=== PATIENT | male | born 1960 | race Caucasian/White ===

== ENCOUNTER 2020-03-31 04:59 | Observation (INO) | payer BC, OTHER ==
--- NOTE | 2020-03-31 05:27 | EDPHYS ---
Physician Documentation [facility] Name: Stephen Pagan Jr Age: 59 yrs Sex: Male : 1960 Arrival Date: 03/31/2020 Time: 05:00 Bed 7 Private MD: ED Physician Josue Newsome HPI: 03/31 05:15 This 59 yrs old Male presents to ER via EMS with complaints of Chest Pain. john 05:15 The patient or guardian reports chest pain that is located primarily in the substernal john area. Onset: just prior to arrival. The pain radiates to back, thoracic area. Associated signs and symptoms: Pertinent positives: None. Pertinent negatives: None. The chest pain is described as a pressure. Modifying factors: The symptoms are alleviated by nothing. the symptoms are aggravated by nothing. Severity of pain: At its worst the pain was moderate in the emergency department the pain is unchanged. EMS care prior to arrival includes: aspirin, supplemental oxygen. Historical: - Allergies: 05:04 Morphine; rr5 05:04 nexium; rr5 - Immunization history:: Adult Immunizations up to date. - Social history:: Smoking status: Patient denies any tobacco usage or history of. - Family history:: not pertinent. - Hospitalizations: : No recent hospitalization is reported. ROS: 05:15 Constitutional: Negative for fever, chills, and weight loss, Eyes: Negative for injury, john pain, redness, and discharge, ENT: Negative for injury, pain, and discharge, Neck: Negative for injury, pain, and swelling, Respiratory: Negative for shortness of breath, cough, wheezing, and pleuritic chest pain, Abdomen/GI: Negative for abdominal pain, nausea, vomiting, diarrhea, and constipation, : Negative for injury, bleeding, discharge, and swelling, MS/Extremity: Negative for injury and deformity, Skin: Negative for injury, rash, and discoloration, Neuro: Negative for headache, weakness, numbness, tingling, and seizure, Psych: Negative for depression, anxiety, suicide ideation, homicidal ideation, and hallucinations, Allergy/Immunology: Negative for hives, rash, and allergies, Endocrine: Negative for neck swelling, polydipsia, polyuria, polyphagia, and marked weight changes, Hematologic/Lymphatic: Negative for swollen nodes, abnormal bleeding, and unusual bruising. 05:15 Cardiovascular: Positive for chest pain, of the chest. 05:15 Back: Positive for pain at rest, radiated pain. Exam: 05:15 Constitutional: This is a well developed, well nourished patient who is awake, alert, john and in no acute distress. Head/Face: Normocephalic, atraumatic. Eyes: Pupils equal round and reactive to light, extra-ocular motions intact. Lids and lashes normal. Conjunctiva and sclera are non-icteric and not injected. Cornea within normal limits. Periorbital areas with no swelling, redness, or edema. ENT: Nares patent. No nasal discharge, no septal abnormalities noted. Tympanic membranes are normal and external auditory canals are clear. Oropharynx with no redness, swelling, or masses, exudates, or evidence of obstruction, uvula midline. Mucous membranes moist. Neck: Trachea midline, no thyromegaly or masses palpated, and no cervical lymphadenopathy. Supple, full range of motion without nuchal rigidity, or vertebral point tenderness. No Meningismus. Chest/axilla: Normal chest wall appearance and motion. Nontender with no deformity. No lesions are appreciated. Cardiovascular: Regular rate and rhythm with a normal S1 and S2. No gallops, murmurs, or rubs. Normal PMI, no JVD. No pulse deficits. Respiratory: Lungs have equal breath sounds bilaterally, clear to auscultation and percussion. No rales, rhonchi or wheezes noted. No increased work of breathing, no retractions or nasal flaring. Abdomen/GI: Soft, non-tender, with normal bowel sounds. No distension or tympany. No guarding or rebound. No evidence of tenderness throughout. Back: No spinal tenderness. No costovertebral tenderness. Full range of motion. Male : Normal genitalia with no discharge or lesions. Skin: Warm, dry with normal turgor. Normal color with no rashes, no lesions, and no evidence of cellulitis. MS/ Extremity: Pulses equal, no cyanosis. Neurovascular intact. Full, normal range of motion. Neuro: Awake and alert, GCS 15, oriented to person, place, time, and situation. Cranial nerves II-XII grossly intact. Motor strength 5/5 in all extremities. Sensory grossly intact. Cerebellar exam normal. Normal gait. Psych: Awake, alert, with orientation to person, place and time. Behavior, mood, and affect are within normal limits. 05:22 ECG was reviewed by the Attending Physician. [facility] Vital Signs: 05:00 BP 157 / 85; Pulse 80; Resp 20; Temp 98.3; Pulse Ox 100% on R/A; Weight 77.11 kg; rr5 Height 6 ft. (182.88 cm); Pain 9/10; 05:30 BP 148 / 108 LA Supine (auto/); Pulse 72 MON; Resp 18 S; Pulse Ox 100% on R/A; sf 05:45 BP 154 / 74 RA Supine (auto/); Pulse 72 MON; Resp 18 S; Pulse Ox 99% on R/A; sf 06:00 BP 114 / 87; Pulse 68; Resp 16; Pulse Ox 97% ; ea 06:15 BP 137 / 79; Pulse 66; Pulse Ox 98% ; ea 06:30 BP 150 / 82 Supine (auto/); Pulse 66 MON; Pulse Ox 98% on R/A; ea 05:00 Body Mass Index 23.06 (77.11 kg, 182.88 cm) rr5 MDM: 05:08 Patient medically screened. [facility] 05:18 Differential diagnosis: abnormal EKG, acute myocardial infarction, acute pericarditis, john cholecystitis, Cholelithiasis costochondritis, esophagitis, gastritis, gastroesophageal reflux disease (GERD), herpes zoster, hiatal hernia, pancreatitis, peptic ulcer disease, pericarditis, pulmonary embolus, stable angina, thoracic aortic disection, unstable angina. HEART Score: History: Moderately Suspicious (1), ECG: Non specific repolarization disturbance / LBTB / PM (1), Age: > 45 and < 65 years (1), Risk Factors: > or = 3 Risk factors for atherosclerotic disease (2), [Hypercholesterolemia] [Hypertension] [+ Family HX]. The patient was not given aspirin in the Emergency Department. Administered by EMS. The patient's deep vein thrombosis risk score was calculated as follows: Total Score: 0. This patient was found to be at low risk for a deep vein thrombosis by using the Well's assessment criteria. The patient's pulmonary embolism risk score was calculated as follows: Total Score: 0-2 points. This patient was found to be at low risk for a pulmonary embolism by using the Well's assessment criteria. MARINE Risk Score: TOTAL SCORE = 0. Data reviewed: vital signs, nurses notes, lab test result(s), EKG, radiologic studies, CT scan, plain films. Data interpreted: engine monitor: rate is 80 beats/min, rhythm is regular, Pulse oximetry: on room air is 100 %. Test interpretation: by ED physician or midlevel provider: ECG, plain radiologic studies. Counseling: I had a detailed discussion with the patient and/or guardian regarding: the historical points, exam findings, and any diagnostic results supporting the discharge/admit diagnosis, lab results, radiology results, the need for further work-up and treatment in the hospital. 03/31 05:05 Order name: Basic Metabolic Panel rr5 03/31 05:05 Order name: CBC with Diff rr5 03/31 05:05 Order name: LFT's rr5 03/31 05:05 Order name: Magnesium rr5 03/31 05:05 Order name: NT PRO-BNP rr5 03/31 05:05 Order name: PT-INR; Complete Time: 06:18 rr5 03/31 05:05 Order name: Troponin (emerg Dept Use Only); Complete Time: 06:02 rr5 03/31 05:05 Order name: Basic Metabolic Panel; Complete Time: 06:02 EDMS 03/31 05:05 Order name: CBC with Automated Diff; Complete Time: 05:54 EDMS 03/31 05:06 Order name: Liver (Hepatic) Function; Complete Time: 06:02 EDMS 03/31 05:06 Order name: Magnesium; Complete Time: 06:02 EDMS 03/31 05:06 Order name: NT PRO-BNP; Complete Time: 06:02 EDMS 03/31 05:13 Order name: Lipase [facility] 03/31 05:05 Order name: XRAY Chest (1 view) rr5 03/31 05:13 Order name: CT Aorta for Dissection [facility] 03/31 05:29 Order name: Urine Dipstick--Ancillary (enter results) ds4 03/31 05:30 Order name: Urine Dipstick-Ancillary EDPR 03/31 05:42 Order name: Lipase; Complete Time: 06:02 EDMS 03/31 06:19 Order name: US Abdomen Limited [facility] 03/31 06:47 Order name: SARS-COV-2 RT PCR; Complete Time: 07:07 EDMS 03/31 08:48 Order name: RAD EDPR 03/31 08:58 Order name: US EDPR 03/31 10:09 Order name: Troponin I EDPR 03/31 10:13 Order name: PTT, Activated Partial Thromb EDPR 03/31 11:28 Order name: Lipid Profile [facility] 03/31 05:05 Order name: EKG; Complete Time: 05:06 rr5 03/31 05:05 Order name: Cardiac monitoring; Complete Time: 05:06 rr5 03/31 05:05 Order name: EKG - Nurse/Tech; Complete Time: 05:06 rr5 03/31 05:05 Order name: IV Saline Lock; Complete Time: 05:06 rr5 03/31 05:05 Order name: Labs collected and sent; Complete Time: 05:06 rr5 03/31 05:05 Order name: O2 Per Protocol; Complete Time: 05:06 rr5 03/31 05:05 Order name: O2 Sat Monitoring; Complete Time: 05:19 rr5 03/31 05:13 Order name: Urine Dipstick-Ancillary (obtain specimen); Complete Time: 05:28 [facility] 03/31 06:54 Order name: CONS Physician Consult EDPR EC:22 Rate is 72 beats/min. QRS [place] is Normal. [place] interval is normal. QRS interval is john normal. QT interval is normal. No Q waves. T waves are Normal. ST Segment is depressed in leads II, III, aVF, V5, V6. Interpreted by me. Reviewed by me. Administered Medications: 05:15 Not Given (dose given by EMS prior to arrival ): Aspirin Chewable Tablet 324 mg PO rr5 once; 81 mg tablets x 4 05:34 Drug: fentaNYL (PF) 50 mcg {Note: rass 0.} Route: IVP; Site: right antecubital; ea 06:04 Follow up: Response: No adverse reaction; Marked relief of symptoms; Pain is decreased sf 05:34 Drug: Zofran (Ondansetron) 4 mg Route: IVP; Site: right antecubital; ea 06:04 Follow up: Response: No adverse reaction sf 05:35 Drug: Pepcid 20 mg Route: IVP; Site: right antecubital; ea 07:00 Follow up: Response: No adverse reaction hb 06:18 Not Given (Duplicate Order): PlaVIX 300 mg PO once john 07:40 Drug: Lopressor 2.5 mg Route: IVP; Site: right wrist; hb 08:15 Follow up: Response: No adverse reaction hb 07:40 Drug: Zosyn 3.375 grams Route: IVPB; Infused Over: 60 mins; Site: right wrist; hb 08:40 Follow up: IV Status: Completed infusion; IV Intake: 50ml hb 11:06 Follow up: Response: No adverse reaction hb 08:00 Drug: Heparin (SC-Bolus No thrombolytic) - HEParin 60 units/kg {Co-Signature: ss hb (Brenda Boo RN).} Route: IVP; Site: right wrist; 09:00 Follow up: Response: No adverse reaction hb 08:00 Drug: Heparin (SC Drip) 12 units/kg/hr - (HEParin 17106 units, D5W 500 ml) hb {Co-Signature: ss (Brenda Boo RN).} Route: IV; Rate: calculated rate; Site: right wrist; 08:45 Follow up: IV Status: Infusion continued upon admission; IV Intake: 25ml hb 08:04 Drug: fentaNYL (PF) 50 mcg Route: IVP; Site: right wrist; hb 08:40 Follow up: Response: No adverse reaction hb 08:04 Drug: Zofran (Ondansetron) 4 mg Route: IVP; Site: right wrist; hb 08:40 Follow up: Response: No adverse reaction hb 11:07 Not Given (does not meet parameters): Lopressor 2.5 mg IVP once; Hold for SBP <100 or hb HR <60. Disposition: 03/31/20 05:26 Hospitalization ordered by Garret Roberto for Inpatient Admission. Preliminary diagnosis are Chest pain, unspecified, Angina pectoris, Essential (primary) hypertension, Other abdominal pain - dyspepsia, Cholelithiasis, Cholecystitis. - Bed requested for [facility] ER HOLD. - Status is Inpatient Admission. hb - Condition is Fair. - Problem is new. - Symptoms have improved. Signatures: Dispatcher [employer] EDMS Radha Vazquez Corey, MD MD cha Attema, Lee, ASSISTANT TENNIS PROFESSIONAL-C ASSISTANT TENNIS PROFESSIONAL-Cla1 Janey Brock RN RN hb Antunez, Elena, RN RN ea Roque, Raymond, RN RN rr5 Adama Floyd RN, RN ss Corrections: (The following items were deleted from the chart) 05:31 05:26 Hospitalization Ordered by Usman Hawley DO for Observation. Preliminary la1 diagnosis is Chest pain, unspecified; Angina pectoris; Essential (primary) hypertension. Bed requested for Telemetry/MedSurg (observation). Status is Observation. Condition is Fair. Problem is new. Symptoms have improved. john 05:41 05:13 Lipase ordered. EDMS EDMS 05:54 05:26 CORONAVIRUS ordered. EDPR EDMS 06:28 05:31 03/31/2020 05:26 Hospitalization Ordered by Garret Roberto MD for Observation. john Preliminary diagnosis is Chest pain, unspecified; Angina pectoris; Essential (primary) hypertension. Bed requested for Telemetry/MedSurg (observation). Status is Observation. Condition is Fair. Problem is new. Symptoms have improved. la1 07:15 06:28 03/31/2020 05:26 Hospitalization Ordered by Garret Roberto MD for Observation. john Preliminary diagnosis is Chest pain, unspecified; Angina pectoris; Essential (primary) hypertension; Other abdominal pain - dyspepsia. Bed requested for Telemetry/MedSurg (observation). Status is Observation. Condition is Fair. Problem is new. Symptoms have improved. john 07:16 07:15 03/31/2020 05:26 Hospitalization Ordered by Garret Roberto MD for Inpatient john Admission. Preliminary diagnosis is Chest pain, unspecified; Angina pectoris; Essential (primary) hypertension; Other abdominal pain - dyspepsia. Bed requested for Telemetry/MedSurg (Inpatient). Status is Inpatient Admission. Condition is Fair. Problem is new. Symptoms have improved. john 07:47 07:16 03/31/2020 05:26 Hospitalization Ordered by Garret Roberto MD for Inpatient bd Admission. Preliminary diagnosis is Chest pain, unspecified; Angina pectoris; Essential (primary) hypertension; Other abdominal pain - dyspepsia; Cholelithiasis; Cholecystitis. Bed requested for Telemetry/MedSurg (Inpatient). Status is Inpatient Admission. Condition is Fair. Problem is new. Symptoms have improved. john 12:20 07:47 03/31/2020 05:26 Hospitalization Ordered by Garret Roberto MD for Inpatient hb Admission. Preliminary diagnosis is Chest pain, unspecified; Angina pectoris; Essential (primary) hypertension; Other abdominal pain - dyspepsia; Cholelithiasis; Cholecystitis. Bed requested for [facility] ER HOLD. Status is Inpatient Admission. Condition is Fair. Problem is new. Symptoms have improved. bd
--- NOTE | 2020-03-31 05:27 | ER ---
Nurse's Notes [facility] Name: Stephen Pagan Jr Age: 59 yrs Sex: Male : 1960 Arrival Date: 03/31/2020 Time: 05:00 Bed 7 Private MD: Diagnosis: Chest pain, unspecified;Angina pectoris;Essential (primary) hypertension;Other abdominal pain-dyspepsia;Cholelithiasis;Cholecystitis Presentation: 03/31 05:00 Chief complaint: EMS states: Reports chest pain that started yesterday night and rr5 worsened this morning, pt reported to EMS pain that started 10/10,reports pain radiates to back and left shoulder. Coronavirus screen: At this time, the client does not indicate any symptoms associated with coronavirus-19. Ebola Screen: No symptoms or risks identified at this time. Initial Sepsis Screen: Does the patient meet any 2 criteria? No. Patient's initial sepsis screen is negative. Does the patient have a suspected source of infection? No. Patient's initial sepsis screen is negative. Risk Assessment: Do you want to hurt yourself or someone else? Patient reports no desire to harm self or others. Onset of symptoms was March 31, 2020. 05:00 Method Of Arrival: EMS: [facility] rr5 05:00 Acuity: KIA 3 rr5 07:11 Acuity: KIA 2 rr5 Triage Assessment: 05:16 General: Appears uncomfortable, Behavior is appropriate for age. Pain: Complains of ea pain in chest Pain radiates to back and left arm Pain currently is 9 out of 10 on a pain scale. at worst was 10 out of 10 on a pain scale. Quality of pain is described as burning. Neuro: Level of Consciousness is awake, alert, obeys commands, Oriented to person, place, time, situation. Cardiovascular: Patient's skin is warm and dry. Respiratory: Airway is patent Respiratory effort is even, unlabored, Respiratory pattern is regular, symmetrical. GI: Abdomen is non-distended. Derm: Skin is dry, Skin is pale, Skin temperature is warm. Musculoskeletal: Circulation, motion, and sensation intact. Historical: - Allergies: 05:04 Morphine; rr5 05:04 nexium; rr5 - Immunization history:: Adult Immunizations up to date. - Social history:: Smoking status: Patient denies any tobacco usage or history of. - Family history:: not pertinent. - Hospitalizations: : No recent hospitalization is reported. Screenin:00 Abuse screen: Denies threats or abuse. Nutritional screening: No deficits noted. rr5 Tuberculosis screening: No symptoms or risk factors identified. Fall Risk None identified. Assessment: 05:15 General: Appears in no apparent distress. uncomfortable, well groomed, Behavior is sf calm, cooperative, appropriate for age. Pain: Complains of pain in xyphoid area Pain radiates to thoracic area Pain currently is 10 out of 10 on a pain scale. Quality of pain is described as burning, Pain began 2 hours ago. Alleviated by nothing. Neuro: No deficits noted. Cardiovascular: Patient's skin is warm and dry. Rhythm is sinus rhythm. Respiratory: No deficits noted. GI: No signs and/or symptoms were reported involving the gastrointestinal system. 06:06 Reassessment: Patient and/or family updated on plan of care and expected duration. Pain sf level reassessed. Patient is alert, oriented x 3, equal unlabored respirations, skin warm/dry/pink. Patient reports chest pain is 2/10, back pain is still 6/10. Patient appears more comfortable. Given urinal per request. Patient states feeling better. Patient states symptoms have improved. 07:05 Reassessment: rosa from ultrasound staff called relayed thick bladder wall fydge large rr5 gallstone in the neck of the gallbladder, pericholecystic fluid. hospitalist aware. 07:43 Reassessment: Patient appears in no apparent distress at this time. Patient and/or hb family updated on plan of care and expected duration. Pain level reassessed. Patient is alert, oriented x 3, equal unlabored respirations, skin warm/dry/pink. 08:14 Reassessment: Safia [phone]. hb Vital Signs: 05:00 BP 157 / 85; Pulse 80; Resp 20; Temp 98.3; Pulse Ox 100% on R/A; Weight 77.11 kg; rr5 Height 6 ft. (182.88 cm); Pain 9/10; 05:30 BP 148 / 108 LA Supine (auto/); Pulse 72 MON; Resp 18 S; Pulse Ox 100% on R/A; sf 05:45 BP 154 / 74 RA Supine (auto/); Pulse 72 MON; Resp 18 S; Pulse Ox 99% on R/A; sf 06:00 BP 114 / 87; Pulse 68; Resp 16; Pulse Ox 97% ; ea 06:15 BP 137 / 79; Pulse 66; Pulse Ox 98% ; ea 06:30 BP 150 / 82 Supine (auto/); Pulse 66 MON; Pulse Ox 98% on R/A; ea 05:00 Body Mass Index 23.06 (77.11 kg, 182.88 cm) rr5 ED Course: 05:00 Patient arrived in ED. cl3 05:03 Triage completed. rr5 05:03 Arm band placed on right wrist. Patient placed in an exam room, on a stretcher, on rr5 court recording monitor, on pulse oximetry. EKG completed in triage. Results shown to MD. 05:04 Patient has correct armband on for positive identification. Placed in gown. Bed in low rr5 position. Call light in reach. Side rails up X2. laboratory monitor on. Pulse ox on. NIBP on. 05:08 Josue Newsome MD is Attending Physician. john 05:11 Initial lab(s) drawn, by me, sent to lab. EKG done, by ED staff. Inserted saline lock: sf 20 gauge in right forearm, using aseptic technique. 05:26 Usman Hawley DO is Hospitalizing Provider. john 05:31 Garret Roberto MD is Hospitalizing Provider. la1 05:37 CT Aorta for Dissection In Process Unspecified. EDMS 05:48 Adama Floyd, XAVI is Primary Nurse. sf 08:21 No provider procedures requiring assistance completed. Patient admitted, IV remains in hb place. Administered Medications: 05:15 Not Given (dose given by EMS prior to arrival ): Aspirin Chewable Tablet 324 mg PO rr5 once; 81 mg tablets x 4 05:34 Drug: fentaNYL (PF) 50 mcg {Note: rass 0.} Route: IVP; Site: right antecubital; ea 06:04 Follow up: Response: No adverse reaction; Marked relief of symptoms; Pain is decreased sf 05:34 Drug: Zofran (Ondansetron) 4 mg Route: IVP; Site: right antecubital; ea 06:04 Follow up: Response: No adverse reaction sf 05:35 Drug: Pepcid 20 mg Route: IVP; Site: right antecubital; ea 07:00 Follow up: Response: No adverse reaction hb 06:18 Not Given (Duplicate Order): PlaVIX 300 mg PO once john 07:40 Drug: Lopressor 2.5 mg Route: IVP; Site: right wrist; hb 08:15 Follow up: Response: No adverse reaction hb 07:40 Drug: Zosyn 3.375 grams Route: IVPB; Infused Over: 60 mins; Site: right wrist; hb 08:40 Follow up: IV Status: Completed infusion; IV Intake: 50ml hb 11:06 Follow up: Response: No adverse reaction hb 08:00 Drug: Heparin ([place]-Bolus No thrombolytic) - HEParin 60 units/kg {Co-Signature: ss hb (Brenda Boo RN).} Route: IVP; Site: right wrist; 09:00 Follow up: Response: No adverse reaction hb 08:00 Drug: Heparin ([place] Drip) 12 units/kg/hr - (HEParin 54691 units, D5W 500 ml) hb {Co-Signature: ss (Brenda Boo RN).} Route: IV; Rate: calculated rate; Site: right wrist; 08:45 Follow up: IV Status: Infusion continued upon admission; IV Intake: 25ml hb 08:04 Drug: fentaNYL (PF) 50 mcg Route: IVP; Site: right wrist; hb 08:40 Follow up: Response: No adverse reaction hb 08:04 Drug: Zofran (Ondansetron) 4 mg Route: IVP; Site: right wrist; hb 08:40 Follow up: Response: No adverse reaction hb 11:07 Not Given (does not meet parameters): Lopressor 2.5 mg IVP once; Hold for SBP <100 or hb HR <60. Intake: 08:40 IV: 50ml; Total: 50ml. hb 08:45 IV: 25ml; Total: 75ml. hb Outcome: 05:26 Decision to Hospitalize by Provider. john 08:21 Admitted to ER Hold. [facility]. hb 08:21 Condition: stable 08:21 Instructed on the need for admit, Demonstrated understanding of instructions. 12:20 Patient left the ED. hb Signatures: Dispatcher [facility] Josue Newsome MD MD cha Attema, Lee, TOOLING SUPERVISOR-C TOOLING SUPERVISOR-Cla1 Janey Brock RN Kelsea Yang RN RN Garret Galvan RN RN rr5 Noemy Berrios cl3 Adama Floyd RN RN stiven Boo RN ss Corrections: (The following items were deleted from the chart) 06:06 06:05 Response: No adverse reaction; Marked relief of symptoms; Pain is decreased sf sf
[2020-03-31] MEDS ORDERED: FENTANYL CITR 100 MCG/2 ML ONE ×3 (05:36→12:43)
[2020-03-31] MEDS ORDERED: ONDANSETRON 4 MG/2 ML VIAL ONE ×3 (05:37→13:33)
[2020-03-31] MEDS ORDERED: FAMOTIDINE 20 MG/2 ML VIAL IV ONE (05:37)
[2020-03-31 05:38] LABS: Basophils % 0.8 % (0-1.3); Hematocrit 44.5 % (39.6-49.0); Lymphocytes % 23.3 % (15.3-44.8); MPV 7.8 fL (7.6-11.3); RBC Red Blood Cell Count 5.14 M/uL (4.33-5.43)
[2020-03-31 05:56] LABS: ALT/SGPT 33 U/L (12-78); AST/SGOT 21 U/L (15-37); Albumin 4.2 g/dL (3.4-5.0); Alkaline Phosphatase 70 U/L (45-117); BUN Blood Urea Nitrogen 16 mg/dL (7-18); Bicarbonate 30 mmol/L (21-32); Bilirubin Direct < 0.1 mg/dL (0-0.2); Bilirubin Total 0.3 mg/dL (0.2-1.0); Glucose Level 130 mg/dL (74-106); Lipase 205 U/L (73-393); Magnesium 2.3 mg/dL (1.8-2.4); NT PRO-BNP 15 pg/mL (<125); Protein, Total 7.8 g/dL (6.4-8.2); Sodium Level 140 mmol/L (136-145); Troponin (Emerg Dept Use Only) < 0.02 ng/mL (0.0-0.045)
[2020-03-31 06:03] LABS: Protime INR 0.87
[2020-03-31] MEDS ORDERED: CLOPIDOGREL 75 MG TABLET ONE (06:08)
[2020-03-31] MEDS ORDERED: HEPARIN/D5W 25,000 UNIT/500 ML BAG IV PRN (06:59)
--- NOTE | 2020-03-31 07:21 | P.HP ---
Certification for Inpatient Patient admitted to: Observation With expected LOS: <2 Midnights Practitioner: I am a practitioner with admitting privileges, knowledge of patient current condition, hospital course, and medical plan of care. Services: Services provided to patient in accordance with Admission requirements found in Title 42 Section 412.3 of the Code of Federal Regulations Patient History Date of Service: 03/31/20 Reason for admission: Chest pain History of Present Illness: 59yo M, PMH: HTN, GERD, Chronic back pain on tramadol presented to ED after awakening due to severe chest pain. He reports 4-6 episodes over the past week, all occur around 2-3 am, waking him from sleep, can last for a few hours. Pain gets to 7-8/10 at times. Nothing improves/relieves it. Has tried pepcid. Denies nausea/vomiting/diarrhea, no SOB, no ALBA, no numbness/tingling. Denies any cardiac history. Workup in ED revealed EKG with some ST depressions in V4-V6. trop negative. Labs rather unremarkable. CT with mild gallbladder wall thickening and wall calcification. Allergies esomeprazole [From Nexium] Allergy (Verified 03/31/20 07:18) UNK morphine Allergy (Verified 03/31/20 07:18) UNK - Past Medical/Surgical History Diabetic: No -: HTN -: GERD -: Chronic back pain -: Back surgery - Family History Family History: Reviewed- Non-Contributory - Social History Smoking Status: Never smoker Alcohol use: No Place of Residence: Home Review of Systems 10-point ROS is otherwise unremarkable Physical Examination - Physical Exam General: Alert, In no apparent distress, Oriented x3 HEENT: Sclerae nonicteric Respiratory: Clear to auscultation bilaterally, Normal air movement Cardiovascular: No edema, Regular rate/rhythm Gastrointestinal: Soft and benign, Non-distended, Tenderness (Anterolateral RUQ) Musculoskeletal: No tenderness Integumentary: No rashes Neurological: Normal speech, Normal affect - Studies Laboratory Data (last 24 hrs) 03/31/20 05:13: Lipase Cancelled 03/31/20 05:10: PT 10.3, INR 0.87 03/31/20 05:10: WBC 8.70, Hgb 15.2, Hct 44.5, Plt Count 280 03/31/20 05:10: Sodium 140, Potassium 4.0, BUN 16, Creatinine 1.01, Glucose 130 H, Magnesium 2.3, Total Bilirubin 0.3, AST 21, ALT 33, Alkaline Phosphatase 70, Lipase 205 Assessment and Plan - Advance Directives Does patient have a Living Will: No Does patient have a Durable POA for Healthcare: No Physician Review Additional Text: Chest Pain Mild Gallbladder wall thickening HTN GERD -ST depressions on EKG, ED physician started patient on heparin drip, will continue for now -Cardiology consulted -trend troponin. Received aspirin, add low dose beta talon, check lipids -mild gallbladder wall thickening noted on CT, pt with RUQ tenderness on exam - reports noticed today -RUQ U/S ordered, ED physician spoke with general surgery -gallbladder may be causing some referred pain, however does have EKG changes -NPO, IVF, pain control VTE: heparin drip Code: full Dispo: anticipate dc home in 24-48hrs Time Spent Managing Pts Care (In Minutes): 60
[2020-03-31] MEDS ORDERED: PIPER/TAZO/NS 3.375gm 3.375 GM/100 ML BAG ONE (07:40)
[2020-03-31] MEDS ORDERED: METOPROLOL TARTRATE 5 MG/5 ML INJ IV ONE (07:40)
[2020-03-31] MEDS ORDERED: HEPARIN 5000 UNIT/ML 1 ML VIAL ONE (07:40)
[2020-03-31] MEDS ORDERED: HEPARIN/D5W 25,000 UNIT/500 ML BAG IV ONE (07:41)
[2020-03-31] MEDS: NA CHLORIDE 0.9% 1,000 ML IV SCH ×2 (08:00→16:43)
[2020-03-31 08:28] VITALS: BMI 23.0
[2020-03-31] MEDS: METOPROLOL TAR 25 MG TAB PO SCH ×2 (08:38→20:39)
--- NOTE | 2020-03-31 08:48 | RAD REPORT ---
EXAM DESCRIPTION: RAD - Chest Single View - 03/31/2020 7:07 am CLINICAL HISTORY: CHEST PAIN Chest pain. COMPARISON: No comparisons FINDINGS: Portable technique limits examination quality. The lungs are emphysematous but grossly clear. The heart is normal in size. No displaced fractures. IMPRESSION: Mild COPD P
--- NOTE | 2020-03-31 08:57 | RAD REPORT ---
EXAM DESCRIPTION: US - Abdomen Exam Limited - 03/31/2020 7:05 am CLINICAL HISTORY: ABD PAIN COMPARISON: Angio Aorta For Dissection dated 03/31/2020 FINDINGS: The gallbladder demonstrates multiple stones and sludge. Gallbladder wall is thickened to 9 mm. Mild pericholecystic fluid. The common bile duct is normal measuring 2 mm.. The liver demonstrates no findings of intrahepatic biliary dilatation. IMPRESSION: Cholelithiasis with gallbladder wall thickening and pericholecystic fluid. Acute cholec ystitis is a possibility.
[2020-03-31] MEDS ORDERED: INFLUENZA VACCINE (for 3y+) 0.5 ML DOSE IMVAC ONE (09:00)
[2020-03-31] MEDS ORDERED: NA CHLORIDE 0.9% 1,000 ML ONE (09:38)
[2020-03-31 09:44] LABS: Urine Blood NEGATIVE (NEG); Urine Glucose NEGATIVE (NEG); Urine Protein NEGATIVE (NEG); Urine Specific Gravity 1.025 (1.005-1.030)
[2020-03-31] MEDS: HYDROMORPHONE HCL 0.5 MG/0.5 ML INJ IV PRN ×2 (09:54→20:39)
[2020-03-31] MEDS ORDERED: HYDROMORPHONE HCL 0.5 MG/0.5 ML INJ ONE (10:06)
[2020-03-31] MEDS ORDERED: Ringers Lactate 1,000 ML IV ONE (12:33)
--- NOTE | 2020-03-31 12:37 | RAD REPORT ---
EXAM DESCRIPTION: CTA of the chest, abdomen, and pelvis with contrast CLINICAL HISTORY: DISSECTION COMPARISON: None Available. TECHNIQUE: CTA of the chest, abdomen and pelvis performed following IV administration of iodinated c ontrast. 3-D/MIP reformatted images available. FINDINGS: Chest: Thyroid: No abnormalities of the visualized thyroid. Great Vessels: Great vessels have normal anatomic configuration. Thoracic Aorta: Normal caliber thoracic aorta without evidence of aneurysm or dissection. Pulmonary arteries: No central filling defects. Heart: No cardiomegaly, significant pericardial effusion, or coronary artery atherosclerosis Lymph Nodes: No enlarged mediastinal lymph nodes identified. Right minor fissure subpleural lymph nod e. Esophagus: No abnormalities of the esophagus identified Other: No additional findings. Lungs: No airspace opacities identified. 3 mm solid pleural-based pulmonary nodule in the left lower lobe best seen on image #75, series 401. Pleura: No pleural effusion or pneumothorax. Trachea/Airways: No abnormalities of the visualized trachea or airways. Abdomen: Liver: The liver has normal size and density. No intrahepatic mass or biliary dilatation. Gallbladder: Mild gallbladder wall thickening with mild gallbladder wall calcification. Spleen, Pancreas, and Adrenal Glands: Multiple hypodensities throughout the spleen. The pancreas an d adrenal glands are unremarkable. Kidneys: The kidneys have normal size and contour without evidence of solid mass or hydronephrosis. Small right renal cyst. Vasculature: Normal caliber abdominal aorta. Aortoiliac atherosclerosis. Flow into the iliac, common femoral, proximal superficial femoral arteries. The profunda femoral and internal iliac arteries are patent. The distal arteries are widely patent without evidence of stenosi s or occlusion. The renal arteries are patent. The portal vein is patent. Stomach: The stomach and duodenum have normal course. Other: No free intraperitoneal air. No free fluid or lymphadenopathy. Tiny fat-containing umbilic al hernia. Pelvis: Bladder: Urinary bladder is unremarkable. Bowel: No dilated loops of large or small bowel. Moderate amount of stool. Few scattered diverticul a of the sigmoid colon. No pericholecystic inflammatory change. Appendix: Normal appendix. Pelvis: Prostate is not enlarged. Small right fat-containing inguinal hernia. Bones: Mild degenerative endplate spondylosis throughout the visualized spine. Disc height narrowing at L5/S1. IMPRESSION: 1. No evidence of aortic dissection. No large central pulmonary embolus. Contrast bolus timing is suboptimal for pulmonary arterial evaluation. 2. Mild wall thickening of the gallbladder with gallbladder wall calcifications. No definite calcifie d gallstones identified. Right upper quadrant ultrasound may be helpful. 3. Heterogeneous appearance of the spleen with scattered lucencies. This may be partially related to early arterial phase of contrast however there are also likely multiple small cysts and/or hemangioma s. 4. Diverticulosis without evidence of acute diverticulitis. 5. 3 mm left solid pulmonary nodule. High risk patient: Consider follow-up in 12 months. Low risk patient: No routine follow-up imaging is recommended. These guidelines do not apply to immunocompromised patients and patients with cancer. Follow up in pa tients with significant comorbidities as clinically warranted. For lung cancer screening, adhere to L [place]-RADS guidelines. Reference: Radiology. 2017; 284(1):228-43. This exam was performed according to our departmental dose-optimization program, which includes autom ated exposure control, adjustment of the mA and/or kV according to patient size and/or use of iterati ve reconstruction technique. Electronically signed by: Hong Lanier 03/31/2020 6:06 AM DRAPERY CUTTER Due to temporary technical issues with the PACS/Fluency reporting system, reports are being signed by the in house radiologist without review as a courtesy to ensure prompt reporting. The interpreting r adiologist is fully responsible for the content of the report.
[2020-03-31] MEDS ORDERED: MIDAZOLAM HCL 2 MG/2 ML INJ ONE (12:43)
[2020-03-31] MEDS ORDERED: propofoL 200 MG/20 ML VIAL IV ONE (12:43)
[2020-03-31] MEDS ORDERED: ROCURONIUM 50 MG/5 ML VIAL IV ONE (12:44)
[2020-03-31] MEDS ORDERED: LIDOCAINE 1% MPF 5 ML VIAL ONE (12:44)
[2020-03-31] MEDS ORDERED: GLYCOPYRROLATE 0.2 MG/ML SYR ONE (13:32)
[2020-03-31] MEDS ORDERED: NEOSTIGMINE 1 MG/ML -5 ML ONE (13:33)
[2020-03-31] MEDS ORDERED: dexAMETHasone 10 MG/ML VIAL ONE (13:33)
--- NOTE | 2020-03-31 13:56 | P.CNS ---
Date of Consult: 03/31/20 PC: This 59-year-old male present urgency with severe right upper quadrant abdominal pain for diagnosis and treatment. HPC: Patient has been ill since last 3rd. Describes the pain in the right upper portion of his abdomen going into his chest ray in the back. Describes it as severe, comes and goes. When he gets is was attacks a last about 4 hr or so with an gradually dissipate. However last night the pain came on, he could not get relief from it and came to the emergency room for evaluation treatment. PMH: Reflux esophagitis PSHx: Negative SOC: States he is allergic to morphine however week is because AKA some headache not that he has any systemic reaction. SYS REVIEW: No cough, wheeze, shortness of breath. No chest pain or palpitations. No urinary complaints O/E wake alert vital signs are stable HEENT: Within normal limb Chest: Air entry equal bilaterally ABD: Tender right upper quadrant with positive Acevedo's LOCO: Intact DATA: On CT scan shows distended gallbladder, still most likely stuck in the neck IMPRESSION: Acute on chronic cholecystitis with cholelithiasis, biliary colic PLAN: I will take him to the operating room for laparoscopic possible open cholecystectomy with a cholangiogram. The risks of this procedure have been discussed. The possibility of bleeding, infection, injury to bile ducts blood vessels intestines has been described. The possible need for an open and/or other procedures was explained. He understands and wants us to proceed.
--- NOTE | 2020-03-31 14:00 | P.OP ---
Preoperative diagnosis: Acute on chronic cholecystitis with cholelithiasis, biliary colic Postoperative diagnosis: The same Primary procedure: Laparoscopic cholecystectomy Secondary procedure: Cholangiogram Other procedure(s): Taylor block Estimated blood loss: Less than 10 cc Specimen: The gallbladder contents Operative Technique: The patient brought to the operating room and placed supine on the table. After the induction of adequate general endotracheal anesthesia, there the abdomen was prepped with a DuraPrep solution, and he was draped in usual aseptic manner. A subumbilical incision was made. This brought down through the skin and subcutaneous tissue. The Visiport was now used to enter the peritoneal cavity and created pneumoperitoneum to approximately 12 mm of mercury. Under direct vision a 5 mm trocar was placed in the upper midline, and 2 other 5 mm trocars on the right lateral side of the abdomen. With the patient placed in reverse Trendelenburg and rolled to the left. We could now visualize the right upper quadrant. We could see the patient had acutely inflamed gallbladder with serosal adhesions of omentum to the surface. These were gently dissected from the fundus down towards Jane's pouch. We could see a very edematous Jane's pouch on which a grasper was placed. Gentle dissection allowed us to expose the cystic duct and the cystic artery. Having now created the critical view, attention was turned towards the junction of the cystic duct with the gallbladder. We could see there was a stone visible in the junction of the gallbladder with the cystic duct. This was milked back into the gallbladder. A clip was now placed between the gallbladder and the cystic duct. An opening was made into the cystic duct. The cholangiocath was now introduced into the cystic duct bile duct. Our cholangiogram showed no evidence of any filling defects and good flow contrast into the duodenum. The catheter was withdrawn. Clips were placed on the distal portion of the cystic duct to secure it. Attention was turned towards the cystic artery which was clipped and divided in usual manner. The gallbladder was now dissected free from the liver bed. There was 1 small area bleeding seen on the inferior portion of the right lobe of the liver with which week easily controlled with a clip. It was interesting to note the amount of edema between the gallbladder and the liver itself. The gallbladder now having been detached from the gallbladder fossa was placed into the Jane's pouch and brought out through the umbilical trocar site. Attention was turned back towards right upper quadrant. This is irrigated a copious amount of saline solution. The anterior abdominal wall was now Taylor blocked using 0.25% Marcaine. This was done bilaterally under direct vision. At this point attention was turned back towards the emboli kiss. It was approximated using 3 interrupted sutures placed using the Endo Close to approximate a small umbilical hernia that the patient had. At this point the pneumoperitoneum was collapsed, the trocars withdrawn, suture tied and tania applied to the skin. At the end of the procedure he was in a stable condition when sent to the recovery room. Needle sponge instrument count were correct. Complications: None
[2020-03-31] MEDS ORDERED: KETOROLAC 30 MG/ML INJ ONE (14:01)
[2020-03-31] MEDS: FENTANYL CITR 100 MCG/2 ML ONE ×2 (14:14→14:21)
[2020-03-31] MEDS: MEPERIDINE HCL 25 MG/ML SYR ONE ×2 (14:17→14:21)
[2020-03-31] MEDS ORDERED: ONDANSETRON 4 MG/2 ML VIAL IV PRN (14:21)
[2020-03-31] MEDS: HYDROMORPHONE HCL 1 MG/ML INJ ONE ×6 (14:28→15:28)
--- NOTE | 2020-03-31 15:02 | RAD REPORT ---
EXAM DESCRIPTION: RADCholangiogram Oper-Xray Or03/31/2020 2:08 pm CLINICAL HISTORY: Abdominal pain FINDINGS: The examination was performed by Dr. White. The cystic duct was cannulated and contrast administered. Contrast flowed into the duodenum. The biliary tree is normal caliber Two fluoroscopic spot images obtained. Fluoroscopy time 0.1 minute
[2020-03-31] MEDS: HYDROCODONE/APAP 7.5/325 MG TAB PO PRN (23:43)
[2020-04-01 00:57] VITALS: O2SAT 98
[2020-04-01 03:21] VITALS: TEMP 97.8
[2020-04-01] MEDS: NA CHLORIDE 0.9% 1,000 ML IV SCH (06:11)
[2020-04-01 07:02] LABS: Albumin 3.5 g/dL (3.4-5.0); Bilirubin Total 0.3 mg/dL (0.2-1.0); Magnesium 2.4 mg/dL (1.8-2.4); Potassium 4.4 mmol/L (3.5-5.1); Protein, Total 6.6 g/dL (6.4-8.2)
[2020-04-01] MEDS ORDERED: ASPIRIN EC 81 MG TAB PO SCH (09:00)
[2020-04-01] MEDS: HYDROCODONE/APAP 7.5/325 MG TAB PO PRN (09:09)
[2020-04-01] MEDS: METOPROLOL TAR 25 MG TAB PO SCH (09:10)
[2020-04-01 14:14] VITALS: BP 146/70
--- NOTE | 2020-04-01 15:28 | P.DS ---
Admission Date: 03/31/20 Discharge Date: 04/01/20 Disposition: ROUTINE DISCHARGE Discharge Condition: GOOD Reason for Admission: Chest pain Consultations: Cardiology - Dr. Butler General Surgery - Dr. White Procedures: CXR (03/31): lungs are emphysematous but grossly clear. The heart is normal in size. No displaced fractures. CT Chest/abd/pelvis (03/31): 1. No evidence of aortic dissection. No large central pulmonary embolus. Contrast bolus timing is suboptimal for pulmonary arterial evaluation. 2. Mild wall thickening of the gallbladder with gallbladder wall calcifications. No definite calcified gallstones identified. Right upper quadrant ultrasound may be helpful. 3. Heterogeneous appearance of the spleen with scattered lucencies. This may be partially related to early arterial phase of contrast however there are also likely multiple small cysts and/or hemangiomas. 4. Diverticulosis without evidence of acute diverticulitis. 5. 3 mm left solid pulmonary nodule. RUQ U/S (03/31): Cholelithiasis with gallbladder wall thickening and pericholecystic fluid. Acute cholecystitis is a possibility. Problem List: Acute on chronic cholecystitis with cholelithiasis HTN GERD Brief History of Present Illness: 59yo M, PMH: HTN, GERD, Chronic back pain on tramadol presented to ED after awakening due to severe substernal chest pain. He reports 4-6 episodes over the past week, all occur around 2-3 am, waking him from sleep, can last for a few hours. Pain gets to 7-8/10 at times. Nothing improves/relieves it. Has tried pepcid. Denies nausea/vomiting/diarrhea, no SOB, no ALBA, no numbness/tingling. Denies any cardiac history. Workup in ED revealed EKG with some nonspecific ST depressions in V4-V6. trop negative. Labs rather unremarkable. CT with mild gallbladder wall thickening and wall calcification. Hospital Course: Cardiology was initially consulted for chest pain and nonspecific EKG changes. A RUQ U/S was obtained revealing likely acute cholecystitis and a gallstone in neck of gallbladder. General Surgery was consulted and patient was taken to the OR for lap chris and intraop cholangiogram. Patient did well postoperatively. He was tolerating a regular diet, passing flatus, and having some mild soreness at incision sites. He was discharged home and will f/u with Dr. White in 1 week. Vital Signs/Physical Exam: Temp Pulse Resp BP Pulse Ox 97.8 F 67 16 146/70 H 99 04/01/20 12:00 04/01/20 12:00 04/01/20 12:00 04/01/20 12:00 04/01/20 12:00 General: Alert, In no apparent distress, Oriented x3 HEENT: Sclerae nonicteric Neck: Supple Respiratory: Clear to auscultation bilaterally, Normal air movement Cardiovascular: No edema, Regular rate/rhythm Gastrointestinal: Soft and benign, Non-distended, Tenderness (very mild soreness at incision sites) Integumentary: No rashes Neurological: Normal speech, Normal affect Laboratory Data at Discharge: WBC 8.70 K/uL (4.3-10.9) 03/31/20 05:10 Hgb 15.2 g/dL (13.6-17.9) 03/31/20 05:10 Hct 44.5 % (39.6-49.0) 03/31/20 05:10 Plt Count 280 K/uL (152-406) 03/31/20 05:10 PT 10.3 SECONDS (9.5-12.5) 03/31/20 05:10 INR 0.87 03/31/20 05:10 APTT Cancelled 04/01/20 01:10 Sodium 139 mmol/L (136-145) 04/01/20 06:28 Potassium 4.4 mmol/L (3.5-5.1) 04/01/20 06:28 BUN 18 mg/dL (7-18) 04/01/20 06:28 Creatinine 1.09 mg/dL (0.55-1.3) 04/01/20 06:28 Glucose 153 mg/dL (74-106) H 04/01/20 06:28 Magnesium 2.4 mg/dL (1.8-2.4) 04/01/20 06:28 Total Bilirubin 0.3 mg/dL (0.2-1.0) 04/01/20 06:28 AST 46 U/L (15-37) H 04/01/20 06:28 ALT 66 U/L (12-78) 04/01/20 06:28 Alkaline Phosphatase 64 U/L (45-117) 04/01/20 06:28 Troponin I Cancelled 03/31/20 17:10 Triglycerides 186 mg/dL (<150) H 03/31/20 09:45 Cholesterol 274 mg/dL (<200) H 03/31/20 09:45 HDL Cholesterol 42 mg/dL (40-60) 03/31/20 09:45 Cholesterol/HDL Ratio 6.52 03/31/20 09:45 Lipase Cancelled 03/31/20 05:13 Home Medications: Amlodipine Besylate 10 mg PO DAILY 03/31/20 Phenylephrine HCl/Acetaminophn [Tylenol Sinus Headache Caplet] 1 tab PO PRN 03/31/20 Tizanidine [Zanaflex*] 1 tab PO PRN 03/31/20 traMADol HCL [Ultram*] 50 mg PO BID 03/31/20 Physician Discharge Instructions: Your pain was found to be due to inflammation of your gallbladder, with a stone blocking your bile as well. You underwent laparoscopic removal of your gallbladder. You are discharged with pain medication. You will need to follow up with Dr. White next week. Follow up with Cardiology (Dr. Butler) in the next few weeks. Call his office to schedule a follow up appointment. Diet: Regular Activity: No lifting more than 10 lbs Followup: Will Butler MD [ACTIVE - CAN ADMIT] - Saurav White MD [ACTIVE - CAN ADMIT] - NONE,NONE [Primary Care Provider] - Time spent managing pt's care (in minutes): 40
--- NOTE | 2020-04-01 15:39 | P.PN ---
Date of Service: 04/01/20 S: Patient is a complaining some he incisional tenderness and some soreness in his back. However the initial presenting pain is gone. O: Vital signs are stable A: Stable status post laparoscopic cholecystectomy with cholangiogram P: Discharge home, see me next week in my office. Any questions or problems, return to the emergency room.
--- NOTE | 2020-04-03 19:15 | CON ---
Date of Consultation: 03/31/2020 Reason For Consultation: Cardiac clearance for possible cholecystectomy by Dr. Saurav White. History Of Present Illness: Mr. Pagan is a 59-year-old white male, who came in with chest pain, at [facility], was diagnosed with cholelithiasis and cholecystitis. He had obvious atypical chest pain that is noncardiac in nature. He does have a history of hypertension, for which he takes Norvasc. He de nied any PND, orthopnea, pedal edema. He denied any palpitation or syncope. The main reason for con sultation was some ST depression in V4 to V6. He had negative troponin symptoms. The changes are ve ry nonspecific and may be secondary to LVH. Allergies: NEXIUM AND MORPHINE. Past Medical History: Include hypertension, GERD, chronic back pain, and back surgery. Review of Systems: Negative. Social History: Negative. Family History: Negative. Medications: Listed earlier. Physical Examination: Vital Signs: Stable, afebrile. HEENT: Negative. Neck: Supple. No bruit. Chest: Clear. Cardiac: Regular rhythm and rate. No murmurs, gallops, or rubs. Abdomen: Benign. Extremities: No clubbing, cyanosis, or edema. Diagnostic Data: As stated earlier. Impression And Plan: The patient with hypertension, left ventricular hypertrophy, and nonspecific ch anges on EKG. No cardiac symptoms. No complaint that is cardiac related. I think he is at low risk to undergo his cholecystectomy by Dr. White. The case was discussed with the patient and with Dr. Roberto and with Dr. White as well. His hypertension is fairly well controlled. I will follow him on an as-needed basis. IVANA/SANDRA Voice ID: [id number] Report ID: [id number]
== END 2020-04-01 16:56 | disposition home or self-care (01) ==
LOC: ER 04:59 → ERHOLD 06:58 → 2ND 15:39
PROVIDERS: ADMIT Hospitalist; ATTEND Hospitalist
PROC: BF03YZZ Plain Radiography of Gallbladder and Bile Ducts using Other Contrast (ICD-10-PCS; 2020-03-31)
PROC: 0FT44ZZ Resection of Gallbladder, Percutaneous Endoscopic Approach (ICD-10-PCS; principal; 2020-03-31 12:00)
DX: K80.66 Calculus of gallbladder and bile duct with acute and chronic cholecystitis without obstruction (principal); R07.89 Other chest pain; I11.9 Hypertensive heart disease without heart failure; K21.00 Gastro-esophageal reflux disease with esophagitis, without bleeding; M54.9 Dorsalgia, unspecified; G89.29 Other chronic pain; K57.90 Diverticulosis of intestine, part unspecified, without perforation or abscess without bleeding; Z88.6 Allergy status to analgesic agent; Z88.8 Allergy status to other drugs, medicaments and biological substances; Z20.822 Contact with and (suspected) exposure to COVID-19
CPT/HCPCS: 47563; 93005; 85025; 80048; 36415 ×2; 83735 ×2; 85610; 80061; 80076; 88304; 85730; 81003; 84484 ×3; 83690; 80053; 83880; 71275; 74175; 74300; 71045; 76705; 99285; U0003; Q9967; J2704; J1644 ×2; J2250; J3010 ×4; J2543; J1100; J2175; J1170 ×5; J2710; J7120; J7030 ×3; J2405 ×3